=== PATIENT | female | born 1970 | race African-American/Black ===

== ENCOUNTER 2016-03-03 15:41 | Emergency (ER) | payer OTHER ==
[~2016-03-03] VITALS: Ht 170.2 cm; Wt 108.9 kg
[2016-03-03] MEDS ORDERED: EPIPEN 2-P0.3 MG/0.3 IM (15:49)
[2016-03-03] MEDS ORDERED: BREO ELLIPTA 11 EACH IH (15:49)
[2016-03-03] MEDS ORDERED: NORCO 5-325 TA1 EACH PO (17:49)
[2016-03-03 18:33] VITALS: BP 141/94
== END 2016-03-03 18:44 | disposition home or self-care (01) ==
LOC: ER 15:41
DX: S80.12XA Contusion of left lower leg, initial encounter (principal); J45.909 Unspecified asthma, uncomplicated; X37.2XXA Blizzard (snow)(ice), initial encounter; Y93.89 Activity, other specified; Y92.096 Garden or yard of other non-institutional residence as the place of occurrence of the external cause; Y99.0 Civilian activity done for income or pay